=== PATIENT | male | born 1970 | race Caucasian/White ===

== ENCOUNTER 2016-12-07 11:53 | Emergency (ER) | payer OTHER, SELFPAY ==
[2016-12-07 12:25] LABS: #Eosinphils 0.2 thou/uL (0.0-0.7); #Lymphocytes 2.7 thou/uL (1.20-3.40); #Monocytes 0.6 thou/uL (0.11-0.59); #Neutrophils 5.4 thou/uL (1.40-6.50); %Basophils 0.5 % (0.0-1.0); %Eosinophils 2.5 % (0.0-10.0); %Lymphocytes 30.1 % (21.0-51.0); %Monocytes 6.9 % (0.0-10.0); Mean Platelet Volume 6.7 fL (7.4-10.4); Red Blood Cell (RBC) Count 4.98 mill/uL (4.70-6.10)
--- NOTE | 2016-12-07 12:43 | RAD ---
CHEST ONE VIEW: History: Chest pain. Comparison: 05-19-16 FINDINGS: Lungs are hypoinflated. Heart size is enlarged although may be superius due to technique. No acute o sseous abnormality. IMPRESSION: Lung hyperinflation with vascular crowding and spurious enlargement of the cardiac silhouette. No ac thalia process. POS: [facility]
[2016-12-07 12:49] LABS: ALT (SGPT) 24 U/L (8-55); AST (SGOT) 16 U/L (5-34); Alkaline Phosphatase 79 U/L (40-150); Anion Gap 8 mmol/L (10-20); BUN (Urea Nitrogen) 14 mg/dL (8.9-20.6); Bilirubin, Total 0.4 mg/dL (0.2-1.2); CK (CPK) 96 U/L (30-200); Calc. Creatinine Clearance 0 mL/min (70-130); Carbon Dioxide 30 mmol/L (22-29); Chloride 100 mmol/L (98-107); Estimated GFR-MDRD 85; Globulin 3.6 g/dL (2.4-3.5); Lipase 24 U/L (8-78); Protein, Total 7.1 g/dL (6.0-8.3)
[2016-12-07 12:54] LABS: Troponin I Less than 0.010 ng/mL (< 0.028)
== END 2016-12-07 13:59 | disposition home or self-care (01) ==
LOC: ERS 11:53
DX: I20.1 Angina pectoris with documented spasm (principal); E11.9 Type 2 diabetes mellitus without complications; E78.5 Hyperlipidemia, unspecified; I11.0 Hypertensive heart disease with heart failure; I50.9 Heart failure, unspecified; F17.210 Nicotine dependence, cigarettes, uncomplicated; Z85.118 Personal history of other malignant neoplasm of bronchus and lung; Z79.82 Long term (current) use of aspirin
CPT/HCPCS: 36415; 71010; 80053; 82550; 82553; 83690; 83880; 84484; 85025; 85379; 93005